=== PATIENT | male | born 1995 | race Caucasian/White ===

== ENCOUNTER 2017-02-03 08:13 | Emergency (ER) | payer MEDICAID ==
[~2017-02-03] VITALS: Ht 188 cm; Wt 85.0 kg
[2017-02-03 08:18] VITALS: BP 130/61; PULSE 81; RESP 18; TEMP 98.4; O2SAT 98
--- NOTE | 2017-02-03 08:23 | PD ---
HPI Chief Complaint: weakness Time Seen by Provider: 08:22 Travel History International Travel<30 days: No Contact w/Intl Traveler<30days: No Traveled to known affect area: No History of Present Illness HPI 22-year-old male came to the emergency room with history of not feeling good and feeling weak with nausea and vomiting this morning. Patient says he has been homeless for past few days. He is from [place] and came here on a job that didn't go well. [place]. Patient says he has no money to go back to [place] and when he started to walk this when he started getting dizzy and lightheaded and vomited. He was brought in by EMS. He is awake and answering questions appropriately. Denies of any pain. He says he did not eat anything since past 3 days. [facility] Past Medical History Narrative Medical List of her past medical, surgical, social and family history was reviewed from the nursing note. Social History Tobacco Use: Yes Allergies-Medications (Allergen,Severity, Reaction): Coded Allergies: No Known Allergies (Unverified , 02/03/17) Comments List of his allergies reviewed from the nursing note. Reported Meds & Prescriptions Reported Meds & Active Scripts Active No Active Prescriptions or Reported Medications Narrative Medication List of his home medications reviewed from the nursing note. Review of Systems Except as stated in HPI: all other systems reviewed are Neg Physical Exam Narrative GENERAL: Awake, alert, no obvious distress SKIN: Focused skin assessment warm/dry. HEAD: Atraumatic. Normocephalic. EYES: Pupils equal and round. No scleral icterus. No injection or drainage. ENT: No nasal bleeding or discharge. Dry mucous memory. NECK: Trachea midline. No JVD. CARDIOVASCULAR: Regular rate and rhythm. No murmur appreciated. RESPIRATORY: No accessory muscle use. Clear to auscultation. Breath sounds equal bilaterally. GASTROINTESTINAL: Abdomen soft, non-tender, nondistended. Hepatic and splenic margins not palpable. MUSCULOSKELETAL: No obvious deformities. No clubbing. No cyanosis. No edema. NEUROLOGICAL: Awake and alert. No obvious cranial nerve deficits. Motor grossly within normal limits. Normal speech. PSYCHIATRIC: Appropriate mood and affect; insight and judgment normal. Data Data Last Documented VS Vital Signs Date Time Temp Pulse Resp B/P Pulse Ox O2 Delivery O2 Flow Rate FiO2 02/03/17 11:05 85 18 128/58 98 Room Air 02/03/17 08:18 98.4 Orders Complete Blood Count With Diff (02/03/17 08:43) Basic Metabolic Panel (Bmp) (02/03/17 08:43) Electrocardiogram (02/03/17 ) Sodium Chlor 0.9% 1000 Ml Inj (Ns 1000 M (02/03/17 08:45) Ondansetron Inj (Zofran Inj) (02/03/17 09:15) Labs Laboratory Tests Test 02/03/17 08:30 White Blood Count 9.2 TH/MM3 Red Blood Count 4.50 MIL/MM3 Hemoglobin 13.9 GM/DL Hematocrit 40.0 % Mean Corpuscular Volume 88.8 FL Mean Corpuscular Hemoglobin 30.8 PG Mean Corpuscular Hemoglobin 34.7 % Concent Red Cell Distribution Width 14.1 % Platelet Count 204 TH/MM3 Mean Platelet Volume 9.3 FL Neutrophils (%) (Auto) 68.2 % Lymphocytes (%) (Auto) 23.1 % Monocytes (%) (Auto) 7.1 % Eosinophils (%) (Auto) 1.2 % Basophils (%) (Auto) 0.4 % Neutrophils # (Auto) 6.3 TH/MM3 Lymphocytes # (Auto) 2.1 TH/MM3 Monocytes # (Auto) 0.7 TH/MM3 Eosinophils # (Auto) 0.1 TH/MM3 Basophils # (Auto) 0.0 TH/MM3 CBC Comment DIFF FINAL Differential Comment Sodium Level 141 MEQ/L Potassium Level 3.6 MEQ/L Chloride Level 107 MEQ/L Carbon Dioxide Level 19.9 MEQ/L Anion Gap 14 MEQ/L Blood Urea Nitrogen 14 MG/DL Creatinine 0.73 MG/DL Estimat Glomerular Filtration 133 ML/MIN Rate Random Glucose 64 MG/DL Calcium Level 9.0 MG/DL [facility] Medical Decision Making Medical Screen Exam Complete: Yes Emergency Medical Condition: Yes Medical Record Reviewed: Yes Differential Diagnosis Dehydration, metabolic abnormality, hypoglycemia Narrative Course 10:35 AM blood test results of back and his blood sugars in the 60s. Patient was given orange juice and valeria crackers. A repeat sugar will be done in half an hour. Otherwise patient is ready to be discharged. Procedures EKG Prior to Arrival: No Diagnosis Primary Impression: Starvation Qualified Code: T73.0XXA - Starvation, initial encounter Additional Impression: Dehydration Referrals: Primary Care Physician Additional Instructions: Try to keep herself hydrated and nourished. Follow-up with primary care. Return to the ER if the condition worsens or any other new concerns. Med/Other Pt SpecificInfo: No Change to Meds Scripts No Active Prescriptions or Reported Meds Disposition: 01 DISCHARGE HOME Condition: Stable Jannie Kearns MD Feb 03, 2017 08:22
[2017-02-03] MEDS ORDERED: SODIUM CHLOR 0.9% 1000 ML INJ 1,000 ML IV ONE (08:45)
[2017-02-03] MEDS ORDERED: ONDANSETRON HCL 4 MG/2 ML VIAL IV PUSH ONE (09:15)
[2017-02-03 09:19] LABS: AUTOMATED NEUTROPHIL # 6.3 TH/MM3 (1.8-7.7); BASOPHIL % 0.4 % (0.0-2.0); EOSINOPHIL # 0.1 TH/MM3 (0-0.4); EOSINOPHIL % 1.2 % (0.0-4.0); HEMO FLAGS DIFF FINAL; LYMPH % 23.1 % (9.0-44.0); LYMPHOCYTE # 2.1 TH/MM3 (1.0-4.8); MEAN CELL VOLUME 88.8 FL (80.0-100.0); MEAN CORPUSCULAR HEMOGLOBIN 30.8 PG (27.0-34.0); MEAN CORPUSCULAR HGB CONC 34.7 % (32.0-36.0); MONO % 7.1 % (0.0-8.0); NEUT % 68.2 % (16.0-70.0); PLATELET COUNT 204 TH/MM3 (150-450); RED CELL DISTRIBUTION WIDTH 14.1 % (11.6-17.2); WHITE BLOOD COUNT 9.2 TH/MM3 (4.0-11.0)
[2017-02-03 09:46] LABS: BICARBONATE 19.9 MEQ/L (21.0-32.0); POTASSIUM 3.6 MEQ/L (3.5-5.1)
[2017-02-03 11:05] VITALS: BP 128/58; PULSE 85; RESP 18; O2SAT 98
--- NOTE | 2017-02-03 12:09 | EKG ---
Date Performed: 02/03/2017 Time Performed: 08:52:55 PTAGE: 22 years EKG: Sinus rhythm NORMAL ECG NO PREVIOUS TRACING DOCTOR: Martin Rogers Interpretating Date/Time 02/03/2017 12:07:49
== END 2017-02-03 11:17 | disposition home or self-care (01) ==
LOC: NEPE 08:13
DX: T73.0XXA Starvation, initial encounter (principal); E86.0 Dehydration; R11.2 Nausea with vomiting, unspecified; R42 Dizziness and giddiness; Z59.0 Homelessness
CPT/HCPCS: 80048; 85025; 93005; 96361; 96374; 99284; J2405; J7030

== ENCOUNTER 2017-03-05 04:50 | Emergency (ER) | payer MEDICAID ==
[~2017-03-05] VITALS: Ht 188 cm; Wt 74.0 kg
[2017-03-05] MEDS ORDERED: SODIUM CHLOR 0.9% 1000 ML INJ 1,000 ML IV ONE (05:00)
[2017-03-05] MEDS ORDERED: ONDANSETRON HCL 4 MG/2 ML VIAL IV ONE (05:00)
[2017-03-05 05:01] VITALS: BP 114/55; PULSE 88; RESP 16; TEMP 98.3; O2SAT 90
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
[2017-03-05 12:16] VITALS: BP 102/59; PULSE 82; RESP 20; TEMP 98.3; O2SAT 98
== END 2017-03-05 12:17 | disposition home or self-care (01) ==
LOC: NEPE 04:50
DX: F10.129 Alcohol abuse with intoxication, unspecified (principal); F19.10 Other psychoactive substance abuse, uncomplicated; Z72.0 Tobacco use
CPT/HCPCS: 96361; 96374; 99284; J2405; J7030

== ENCOUNTER 2017-03-05 12:53 | Emergency (ER) | payer MEDICAID ==
[~2017-03-05] VITALS: Ht 188 cm; Wt 88.0 kg
[2017-03-05 12:54] VITALS: BP 120/63; PULSE 80; RESP 16; TEMP 98.4; O2SAT 98
--- NOTE | 2017-03-05 14:26 | PD ---
HPI . wants a screening head ct scan Chief Complaint: Medical Clearance Time Seen by Provider: 14:26 Travel History International Travel<30 days: No Contact w/Intl Traveler<30days: No Traveled to known affect area: No History of Present Illness HPI 22 yr old male from [place] tells me he wants a CT scan to check his blood vessels in his head. He has no complaints and just wants a CT scan. He says he was told a while back he may have MS and wants to see what has become of that. He has no specific complaints. He is [facility] [place] [facility] [place] because we don't do whatever he requests. PFSH Past Medical History Diminished Hearing: No Past Surgical History Appendectomy: Yes Social History Alcohol Use: Yes Tobacco Use: Yes Substance Use: No Allergies-Medications (Allergen,Severity, Reaction): Coded Allergies: No Known Allergies (Unverified , 03/05/17) Reported Meds & Prescriptions Reported Meds & Active Scripts Active No Active Prescriptions or Reported Medications Review of Systems General / Constitutional: No: Fever Eyes: No: Visual changes HENT: No: Headaches Cardiovascular: No: Chest Pain or Discomfort Respiratory: No: Shortness of Breath Gastrointestinal: No: Abdominal Pain Genitourinary: No: Dysuria Musculoskeletal: No: Pain Skin: No Rash Neurologic: No: Weakness Psychiatric: No: Depression Endocrine: No: Polydipsia Hematologic/Lymphatic: No: Easy Bruising Physical Exam Narrative GENERAL: AAO x 3, no acute distress, Well-nourished, well-developed patient. SKIN: Warm and dry. No visible rashes or bruising. HEAD: Normocephalic and atraumatic. EYES: No scleral icterus. No injection or drainage. ENT: No nasal drainage noted. Mucous membranes pink. Airway patent. NECK: Supple, trachea midline. No JVD. CARDIOVASCULAR: Regular rate and rhythm without murmurs, gallops, or rubs. RESPIRATORY: Breath sounds equal bilaterally. GASTROINTESTINAL: Abdomen soft, non-tender, nondistended. EXTREMITIES: No cyanosis or edema. BACK: No obvious deformity NEURO: CN II-12 intact, PSYCH: AAO x 3, normal affect. Data Data Last Documented VS Vital Signs Date Time Temp Pulse Resp B/P Pulse Ox O2 Delivery O2 Flow Rate FiO2 03/05/17 12:54 98.4 80 16 120/63 98 Room Air MDM Medical Decision Making Medical Screen Exam Complete: Yes Emergency Medical Condition: No Medical Record Reviewed: Yes Differential Diagnosis malingering, medical clearance, MS Narrative Course A medical screening exam was performed: At the time of evaluation the presenting medical condition was determined not to be of an emergent nature. The patient was given the option of receiving additional care, but declined. Patient was given options for additional community resources from which to obtain care. The Patient Has Been advised to seek medical attention for their presenting complaint. The patient has been advised to return to the ER at any time if an emergent condition develops. Diagnosis Primary Impression: Encounter for medical screening examination Scripts No Active Prescriptions or Reported Meds Condition: Stable Nesha Solomon Mar 05, 2017 14:26
== END 2017-03-05 14:39 | disposition left against medical advice (07) ==
LOC: NEPK 12:53
DX: Z00.00 Encounter for general adult medical examination without abnormal findings (principal); Z72.0 Tobacco use
CPT/HCPCS: 99281